=== PATIENT | female | born 1975 | race Caucasian/White ===

== ENCOUNTER 2017-06-20 15:46 | Emergency (ER) | payer MEDICAID ==
[~2017-06-20] VITALS: Ht 162.6 cm; Wt 97.1 kg
[2017-06-20 15:56] VITALS: BP_SYST 156
[2017-06-20 17:11] LABS: BILIRUBIN,URINE NEGATIVE (NEGATIVE); CLARITY/URINE CLEAR (CLEAR); COLOR,URINE YELLOW (YELLOW); GLUCOSE,URINE NEGATIVE (NEGATIVE); KETONES,URINE NEGATIVE (NEGATIVE); LEUKOCYTE ESTERASE ,URINE NEGATIVE (NEGATIVE); NITRITE, URINE NEGATIVE (NEGATIVE); PH,URINE 5.5 (5.0-8.0); PROTEIN URINE NEGATIVE (NEGATIVE)
[2017-06-20 17:12] LABS: BLOOD, URINE TRACE (NEGATIVE)
[2017-06-20 17:17] LABS: MUCUS,URINE None Seen /LPF (None Seen); RBC,URINE 0-3 /HPF (0-3)
[2017-06-20 17:18] LABS: BACTERIA,URINE FEW /HPF (None Seen)
[2017-06-20 18:00] VITALS: BP_SYST 144
== END 2017-06-20 18:00 | disposition home or self-care (01) ==
LOC: SED 15:46
DX: R10.2 Pelvic and perineal pain (principal); I10 Essential (primary) hypertension; J45.909 Unspecified asthma, uncomplicated
CPT/HCPCS: 81000-TC; 81003; 87086; 99284

== ENCOUNTER 2020-06-01 12:15 | Emergency (ER) | payer MEDICAID, OTHER ==
[~2020-06-01] VITALS: Ht 160 cm; Wt 104.3 kg
[2020-06-01 12:45] VITALS: BP_SYST 141
[2020-06-01] MEDS ORDERED: KETOROLAC TROMETHAMINE 60 MG/2 ML VIAL IM ONE (15:15)
[2020-06-01 15:23] VITALS: BP_SYST 141
== END 2020-06-01 15:24 | disposition home or self-care (01) ==
LOC: SED 12:15
DX: S39.012A Strain of muscle, fascia and tendon of lower back, initial encounter (principal); S19.9XXA Unspecified injury of neck, initial encounter; I10 Essential (primary) hypertension; J45.909 Unspecified asthma, uncomplicated; V49.49XA Driver injured in collision with other motor vehicles in traffic accident, initial encounter; Y93.89 Activity, other specified; Y92.413 State road as the place of occurrence of the external cause; Y99.8 Other external cause status
CPT/HCPCS: 72125-TC; 72131; 76376; 81025; 96372; 99285